=== PATIENT | male | born 1950 | race Caucasian/White ===

== ENCOUNTER 2020-01-10 12:19 | Outpatient (CLI) | payer BC, OTHER ==
--- NOTE | 2020-01-10 20:20 | RAD ---
LEFT FEMUR TWO VIEW: 01/10/20 HISTORY: Leg injury. COMPARISON: None. FINDINGS: No acute left femur fracture. Obturator ring is intact. Moderate narrowing of the medial compartment of the knee. Mild vascular calcifications. 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 No femur fracture. POS: HOME
== END 2020-01-10 12:20 | disposition home or self-care (01) ==
LOC: SCSRAD 12:19
PROVIDERS: ATTEND Family Medicine
DX: S89.92XA Unspecified injury of left lower leg, initial encounter (principal); M17.12 Unilateral primary osteoarthritis, left knee; M16.12 Unilateral primary osteoarthritis, left hip

== ENCOUNTER 2020-08-01 11:51 | Emergency (ER) | payer BC, OTHER ==
[2020-08-01] MEDS ORDERED: cefTRIAXone\\ROCEPHIN 2 GM VIAL ONE (12:24)
[2020-08-01] MEDS ORDERED: Acetaminophen 500 MG TAB ONE (12:26)
[2020-08-01 12:35] LABS: #Lymphocytes 0.8 thou/uL (1.20-3.40); #Monocytes 1.3 thou/uL (0.11-0.59); #Neutrophils 11.5 thou/uL (1.40-6.50); %Basophils 0.2 % (0.0-1.0); %Eosinophils 0.1 % (0.0-10.0); %Lymphocytes 5.7 % (21.0-51.0); %Monocytes 9.6 % (0.0-10.0); %Neutrophils 84.4 % (42.0-75.0); Hemoglobin 17.8 g/dL (14.0-18.0); Mean Corpuscular Hemoglobin 32.5 pg (27.0-31.0); Mean Corpuscular Volume 98.6 fL (78.0-98.0); Mean Platelet Volume 7.3 fL (7.4-10.4); Platelet Count 139 thou/uL (130-400); Red Blood Cell (RBC) Count 5.46 mill/uL (4.70-6.10); White Blood Cell (WBC) Count 13.7 thou/uL (4.8-10.8)
[2020-08-01 12:57] LABS: ALT (SGPT) 26 U/L (8-55); AST (SGOT) 17 U/L (5-34); Albumin 4.7 g/dL (3.4-4.8); Alkaline Phosphatase 71 U/L (40-110); Anion Gap 15 mmol/L (10-20); BUN (Urea Nitrogen) 17 mg/dL (8.4-25.7); Bilirubin, Total 1.5 mg/dL (0.2-1.2); Calc. Creatinine Clearance 0 mL/min (70-130); Calcium 10.1 mg/dL (7.8-10.44); Carbon Dioxide 26 mmol/L (23-31); Chloride 101 mmol/L (98-107); Globulin 3.5 g/dL (2.4-3.5); Glucose 121 mg/dL (80-115); Protein, Total 8.2 g/dL (5.8-8.1); Sodium 138 mmol/L (136-145)
[2020-08-01 13:10] LABS: Bilirubin Small (Negative); Blood, Urine Large (Negative); Glucose, Urine (Dipstick) 250 mg/dL (Negative); Ketone, Urine 15 mg/dL (Negative); Leukocyte Moderate (Negative); Nitrite Positive (Negative); Protein, Urine (Dipstick) 100 mg/dL (Neg-Trace); Specific Gravity, Urine 1.025 (1.005-1.030); pH, Urine 5.5 (5.0-9.0)
[2020-08-01 13:12] LABS: Clarity Cloudy (Clear)
[2020-08-01 13:17] LABS: Bacteria/HPF 3+ HPF (None Seen); RBC/HPF 21-50 HPF (0-3); Squamous Epithelial 0-3 HPF (0-3); WBC/HPF Greater Than 50 HPF (0-3)
== END 2020-08-01 14:36 | disposition home or self-care (01) ==
LOC: ERS 11:51
DX: N39.0 Urinary tract infection, site not specified (principal); D72.829 Elevated white blood cell count, unspecified; E78.5 Hyperlipidemia, unspecified; I10 Essential (primary) hypertension; F17.220 Nicotine dependence, chewing tobacco, uncomplicated; Z79.899 Other long term (current) drug therapy
CPT/HCPCS: 36415; 80053; 81003; 81015; 83605; 85025; 87040; 87077; 87086; 87149; 87186; 93005; 94760; 96365; J0696

== ENCOUNTER 2020-08-02 16:18 | Observation (INO) | payer BC, OTHER ==
[2020-08-02] MEDS ORDERED: Acetaminophen 500 MG TAB ONE ×2 (16:29→16:49)
[2020-08-02] MEDS ORDERED: cefTRIAXone\\ROCEPHIN 1 GM VIAL ONE (16:43)
[2020-08-02 16:57] LABS: #Lymphocytes 0.4 thou/uL (1.20-3.40); #Monocytes 0.5 thou/uL (0.11-0.59); %Eosinophils 0.2 % (0.0-10.0); %Monocytes 5.4 % (0.0-10.0); %Neutrophils 90.4 % (42.0-75.0); Hemoglobin 16.7 g/dL (14.0-18.0); Mean Corpuscular Hemoglobin 33.6 pg (27.0-31.0); Mean Corpuscular Volume 98.6 fL (78.0-98.0); Mean Platelet Volume 7.4 fL (7.4-10.4); Platelet Count 109 thou/uL (130-400); RBC Distribution Width 12.9 % (11.5-14.5); Red Blood Cell (RBC) Count 4.99 mill/uL (4.70-6.10)
[2020-08-02 17:14] LABS: ALT (SGPT) 21 U/L (8-55); AST (SGOT) 19 U/L (5-34); Albumin 4.1 g/dL (3.4-4.8); Alkaline Phosphatase 78 U/L (40-110); Anion Gap 11 mmol/L (10-20); BUN (Urea Nitrogen) 16 mg/dL (8.4-25.7); Bilirubin, Total 1.2 mg/dL (0.2-1.2); Calc. Creatinine Clearance 0 mL/min (70-130); Calcium 9.3 mg/dL (7.8-10.44); Carbon Dioxide 26 mmol/L (23-31); Chloride 104 mmol/L (98-107); Globulin 3.4 g/dL (2.4-3.5); Glucose 103 mg/dL (80-115); Potassium 3.9 mmol/L (3.5-5.1); Protein, Total 7.5 g/dL (5.8-8.1); Sodium 137 mmol/L (136-145)
[2020-08-02 17:15] LABS: Bacteria/HPF None Seen HPF (None Seen); Bilirubin Negative (Negative); Blood, Urine 2+ (Negative); Clarity Clear (Clear); Glucose, Urine (Dipstick) 200 mg/dL (Negative); Ketone, Urine Trace mg/dL (Negative); Leukocyte 75 Leu/uL (Negative); Nitrite Negative (Negative); Protein, Urine (Dipstick) 300 mg/dL (Neg-Trace); Specific Gravity, Urine 1.013 (1.002-1.036); Squamous Epithelial 0-3 HPF (0-3); Urobilinogen Normal mg/dL (Less than 2); WBC/HPF 21-50 HPF (0-3)
[2020-08-02] MEDS ORDERED: Vancomycin 1 GM/200 ML BAG ONE (18:22)
[2020-08-02] MEDS ORDERED: Acetaminophen 325 MG TAB PO PRN ×2 (19:30→20:17)
[2020-08-02] MEDS ORDERED: hydrALAZINE 20 MG/ML VIAL SLOW IVP PRN (20:17)
[2020-08-02] MEDS ORDERED: Atorvastatin Calcium 20 MG TAB PO SCH (21:00)
[2020-08-02] MEDS: Sodium Chloride 0.9% 1,000 ML IV SCH (21:22)
[2020-08-02] MEDS: Tamsulosin HCl 0.4 MG CAP PO SCH (22:31)
[2020-08-03 00:19] LABS: SARS-CoV-2 NAA Rapid Test Not Detected (NotDetected)
[2020-08-03 01:15] VITALS: BMI 30.9
[2020-08-03] MEDS: Sodium Chloride 0.9% 1,000 ML IV SCH ×4 (02:15→23:38)
[2020-08-03] MEDS: Famotidine 20 MG TAB PO SCH ×3 (02:16→21:10)
[2020-08-03 06:22] LABS: Band 8 % (5-11); Hemoglobin 14.9 g/dL (14.0-18.0); Lymphocytes 14 % (21-51); MDiff Complete? YES; Mean Corpuscular HGB CONC 33.3 g/dL (32.0-36.0); Mean Corpuscular Hemoglobin 32.5 pg (27.0-31.0); Mean Corpuscular Volume 97.8 fL (78.0-98.0); Mean Platelet Volume 8.2 fL (7.4-10.4); Monocytes 16 % (0-10); Neutrophil 62 % (42-75); Platelet Count 119 thou/uL (130-400); Platelet Morphology Comment Appears Decreased; RBC Distribution Width 12.9 % (11.5-14.5); Red Blood Cell (RBC) Count 4.59 mill/uL (4.70-6.10); White Blood Cell (WBC) Count 8.5 thou/uL (4.8-10.8)
[2020-08-03] MEDS: Enoxaparin Sodium 40 MG/0.4 ML SYRINGE SC SCH (08:55)
[2020-08-03] MEDS ORDERED: Amlodipine 10 MG TAB PO SCH ×2 (09:00→21:00)
[2020-08-03] MEDS ORDERED: Aspirin 81 mg Enteric Coated Tablet PO SCH ×2 (09:00→21:00)
[2020-08-03] MEDS ORDERED: Ezetimibe 10 MG TAB PO SCH ×2 (09:00→21:00)
[2020-08-03] MEDS ORDERED: Polyethylene Glycol 3350 17 GM Packet PO SCH (18:00)
[2020-08-03 18:09] LABS: Anion Gap 13 mmol/L (10-20); BUN (Urea Nitrogen) 18 mg/dL (8.4-25.7); Calc. Creatinine Clearance 92 mL/min (70-130); Calcium 9.3 mg/dL (7.8-10.44); Carbon Dioxide 23 mmol/L (23-31); Chloride 106 mmol/L (98-107); Glucose 98 mg/dL (80-115); Potassium 3.8 mmol/L (3.5-5.1); Sodium 138 mmol/L (136-145)
[2020-08-03] MEDS: Tamsulosin HCl 0.4 MG CAP PO SCH (21:10)
[2020-08-04 07:48] VITALS: BP 155/76; TEMP 98.2
[2020-08-04] MEDS ORDERED: Polyethylene Glycol 3350 17 GM Packet PO SCH (09:00)
[2020-08-04] MEDS ORDERED: Losartan 25 MG TAB PO SCH (09:00)
[2020-08-04] MEDS: Famotidine 20 MG TAB PO SCH (11:21)
[2020-08-04] MEDS: Enoxaparin Sodium 40 MG/0.4 ML SYRINGE SC SCH (11:21)
== END 2020-08-04 12:00 | disposition home or self-care (01) ==
LOC: ERS 16:18 → SURG A 18:21
PROVIDERS: ADMIT Internal Medicine; ATTEND Internal Medicine
DX: N30.01 Acute cystitis with hematuria (principal); N17.9 Acute kidney failure, unspecified; N20.0 Calculus of kidney; I10 Essential (primary) hypertension; E11.9 Type 2 diabetes mellitus without complications; E78.5 Hyperlipidemia, unspecified; N40.0 Benign prostatic hyperplasia without lower urinary tract symptoms; Z79.82 Long term (current) use of aspirin; Z79.899 Other long term (current) drug therapy; Z88.8 Allergy status to other drugs, medicaments and biological substances
CPT/HCPCS: 36415; 71045; 74176; 80048; 80053; 81003; 81015; 83605; 85007; 85025; 85027; 87040; 87086; 93005; 96365; 96375; G0378; J0696; J1956; J3370; U0002; U0005

== ENCOUNTER 2020-10-10 13:18 | Outpatient (CLI) | payer BC, OTHER ==
[2020-10-10 14:45] LABS: #Eosinphils 0.1 10x3/uL (0.0-0.5); #Monocytes 0.7 10x3/uL (0.0-1.1); %Basophils 0.3 % (0.0-2.0); %Eosinophils 1.3 % (0.0-6.0); %Lymphocytes 20.7 % (18.0-47.0); %Neutrophils 66.5 % (40.0-75.0); Hemoglobin 13.9 g/dL (13.5-17.5); Mean Corpuscular HGB CONC 33.7 g/dL (32.0-36.0); Mean Corpuscular Hemoglobin 32.2 pg (27.0-33.0); Mean Corpuscular Volume 95.4 fl (81.2-95.1); Mean Platelet Volume 9.6 fl (7.4-10.4); Platelet Count 150 10x3/uL (150-450); RBC Distribution Width 13.2 % (11.5-14.5); Red Blood Cell (RBC) Count 4.32 10x6/uL (4.32-5.72)
[2020-10-10 14:50] LABS: Bilirubin Neg (Negative); Blood, Urine 25 (Negative); Clarity Clear (Clear); Glucose, Urine (Dipstick) 250 mg/dL (Negative); Ketone, Urine Negative (Negative); Leukocyte 25 (Negative); Nitrite Negative (Negative); Protein, Urine (Dipstick) Negative (Neg-Trace); Urobilinogen Normal mg/dL (Less than 2)
[2020-10-10 14:59] LABS: Prothrombin Time 10.8 sec (9.5-12.1)
[2020-10-10 15:01] LABS: Bacteria/HPF None Seen HPF (None Seen); RBC/HPF 0-3 HPF (0-3); Squamous Epithelial None Seen HPF (0-3); WBC/HPF 0-3 HPF (0-3)
[2020-10-10 15:01] LABS: Anion Gap 13 mmol/L (10-20); BUN (Urea Nitrogen) 23 mg/dL (8.4-25.7); Calc. Creatinine Clearance 0 mL/min (70-130); Calcium 9.9 mg/dL (7.8-10.44); Carbon Dioxide 29 mmol/L (23-31); Chloride 103 mmol/L (98-107); Glucose 130 mg/dL (80-115); Potassium 4.5 mmol/L (3.5-5.1); Sodium 140 mmol/L (136-145)
[2020-10-11 11:41] LABS: SARS-CoV-2 PCR by NAA Not Detected (NotDetected)
== END 2020-10-10 13:19 | disposition home or self-care (01) ==
LOC: LABBT 13:18
PROVIDERS: ATTEND Orthopaedic Surgery
DX: Z01.818 Encounter for other preprocedural examination (principal); M16.12 Unilateral primary osteoarthritis, left hip; Z20.822 Contact with and (suspected) exposure to COVID-19
CPT/HCPCS: 80048; 81001; 85025; 85610; 87081; 93005; 93010; U0003; U0005

== ENCOUNTER 2020-11-09 14:36 | Inpatient (IN) | payer BC, OTHER, MEDICARE ==
[~2020-11-09 14:36] MED LIST: Iopamidol-370 76% 500 ML 1 ML ONE
[2020-11-09 15:37] LABS: #Lymphocytes 0.7 thou/uL (1.20-3.40); #Monocytes 0.2 thou/uL (0.11-0.59); #Neutrophils 5.3 thou/uL (1.40-6.50); %Basophils 0.3 % (0.0-1.0); %Eosinophils 0.1 % (0.0-10.0); %Lymphocytes 11.4 % (21.0-51.0); %Monocytes 3.1 % (0.0-10.0); Mean Corpuscular HGB CONC 34.4 g/dL (32.0-36.0); Mean Corpuscular Hemoglobin 33.4 pg (27.0-31.0); Platelet Count 188 thou/uL (130-400); RBC Distribution Width 12.7 % (11.5-14.5); White Blood Cell (WBC) Count 6.3 thou/uL (4.8-10.8)
[2020-11-09 16:03] LABS: ALT (SGPT) 69 U/L (8-55); AST (SGOT) 82 U/L (5-34); Albumin 3.4 g/dL (3.4-4.8); Alkaline Phosphatase 111 U/L (40-110); Anion Gap 16 mmol/L (10-20); BUN (Urea Nitrogen) 25 mg/dL (8.4-25.7); Bilirubin, Total 1.1 mg/dL (0.2-1.2); Calc. Creatinine Clearance 0 mL/min (70-130); Calcium 8.8 mg/dL (7.8-10.44); Carbon Dioxide 23 mmol/L (23-31); Chloride 101 mmol/L (98-107); Globulin 3.2 g/dL (2.4-3.5); Glucose 111 mg/dL (80-115); Potassium 4.1 mmol/L (3.5-5.1); Protein, Total 6.6 g/dL (5.8-8.1); Sodium 136 mmol/L (136-145)
[2020-11-09] MEDS ORDERED: Famotidine/PF 20 mg/2ml Vial ONE (17:21)
[2020-11-09] MEDS ORDERED: diphenhydrAMINE 50 MG/ML VIAL ONE (17:21)
[2020-11-09] MEDS ORDERED: HYDROcodone/Acetaminophen 5/325 mg Tablet PO PRN (21:03)
[2020-11-09] MEDS ORDERED: Guaifenesin DM 100-10/5 ML UDCUP PO PRN (21:03)
[2020-11-09] MEDS ORDERED: Ondansetron PF 4 MG/2 ML Vial IVP PRN (21:03)
[2020-11-09] MEDS ORDERED: Acetaminophen 325 MG TAB PO PRN (21:03)
[2020-11-09] MEDS ORDERED: hydrALAZINE 20 MG/ML VIAL SLOW IVP PRN (21:11)
[2020-11-09] MEDS ORDERED: Morphine 2 MG/ML VIAL SLOW IVP PRN (21:11)
[2020-11-09] MEDS ORDERED: HumaLOG 300 UNITS/3 ML VIAL SC PRN (21:30)
[2020-11-09] MEDS ORDERED: Dexamethasone 10 MG in Sodium Chloride 0.9% 50 ML IVPB SCH (21:30)
[2020-11-09] MEDS ORDERED: Dexamethasone 10 MG/ML VIAL SLOW IVP SCH (22:00)
[2020-11-10] MEDS ORDERED: Guaifenesin DM 100-10/5 ML UDCUP PO PRN (00:01)
[2020-11-10 00:05] VITALS: BMI 27.0
[2020-11-10] MEDS: Nicotine 21 MG PATCH TD SCH (00:48)
[2020-11-10 04:55] LABS: Bilirubin, Total 0.9 mg/dL (0.2-1.2); Calcium 8.5 mg/dL (7.8-10.44); Chloride 106 mmol/L (98-107); Potassium 4.6 mmol/L (3.5-5.1); Sodium 137 mmol/L (136-145)
[2020-11-10 04:57] LABS: #Lymphocytes 0.4 thou/uL (1.20-3.40); #Monocytes 0.4 thou/uL (0.11-0.59); #Neutrophils 2.6 thou/uL (1.40-6.50); %Basophils 0.3 % (0.0-1.0); %Eosinophils 0.1 % (0.0-10.0); %Lymphocytes 12.7 % (21.0-51.0); %Monocytes 10.5 % (0.0-10.0); %Neutrophils 76.5 % (42.0-75.0); Hemoglobin 13.8 g/dL (14.0-18.0); Mean Corpuscular HGB CONC 32.8 g/dL (32.0-36.0); Mean Corpuscular Hemoglobin 32.1 pg (27.0-31.0); Mean Corpuscular Volume 97.7 fL (78.0-98.0); Mean Platelet Volume 7.1 fL (7.4-10.4); Platelet Count 227 thou/uL (130-400); RBC Distribution Width 12.9 % (11.5-14.5); Red Blood Cell (RBC) Count 4.32 mill/uL (4.70-6.10); White Blood Cell (WBC) Count 3.4 thou/uL (4.8-10.8)
[2020-11-10 05:06] LABS: ALT (SGPT) 64 U/L (8-55); AST (SGOT) 67 U/L (5-34); Albumin 3.3 g/dL (3.4-4.8); Alkaline Phosphatase 109 U/L (40-110); Anion Gap 18 mmol/L (10-20); BUN (Urea Nitrogen) 25 mg/dL (8.4-25.7); Calc. Creatinine Clearance 104 mL/min (70-130); Carbon Dioxide 17 mmol/L (23-31); Globulin 3.4 g/dL (2.4-3.5); Glucose 157 mg/dL (80-115); Protein, Total 6.7 g/dL (5.8-8.1)
[2020-11-10] MEDS ORDERED: Dexamethasone 1 MG TAB PO SCH (08:00)
[2020-11-10] MEDS: Enoxaparin Sodium 40 MG/0.4 ML SYRINGE SC SCH (09:25)
[2020-11-10] MEDS: Famotidine 20 MG TAB PO SCH ×2 (09:25→20:30)
[2020-11-10] MEDS: Zinc Sulfate 220 MG CAP PO SCH (09:25)
[2020-11-10] MEDS: Aspirin 81 mg Enteric Coated Tablet PO SCH ×2 (09:25→20:26)
[2020-11-10] MEDS: guaiFENesin ER 600 MG TAB PO SCH ×2 (09:26→20:28)
[2020-11-10] MEDS: Dexamethasone 10 MG/ML VIAL SLOW IVP SCH (09:28)
[2020-11-10] MEDS ORDERED: REMDESIVIR 200 MG in Sodium Chloride 0.9% 250 ML 210 ML IV SCH (15:00)
[2020-11-10 19:11] LABS: SARS-CoV-2 PCR by NAA DETECTED (NotDetected)
[2020-11-10] MEDS: Ezetimibe 10 MG TAB PO SCH ×2 (20:26→20:27)
[2020-11-10] MEDS: Atorvastatin Calcium 20 MG TAB PO SCH ×2 (20:26→20:27)
[2020-11-10] MEDS: Amlodipine 10 MG TAB PO SCH (20:28)
[2020-11-10] MEDS: Gabapentin 100 MG CAP PO PRN (20:30)
[2020-11-11] MEDS: Famotidine 20 MG TAB PO SCH ×2 (08:26→20:24)
[2020-11-11] MEDS: Aspirin 81 mg Enteric Coated Tablet PO SCH ×2 (08:26→20:23)
[2020-11-11] MEDS: Enoxaparin Sodium 40 MG/0.4 ML SYRINGE SC SCH (08:26)
[2020-11-11] MEDS: Zinc Sulfate 220 MG CAP PO SCH (08:26)
[2020-11-11] MEDS: guaiFENesin ER 600 MG TAB PO SCH ×3 (08:26→20:53)
[2020-11-11] MEDS: Dexamethasone 10 MG/ML VIAL SLOW IVP SCH (08:27)
[2020-11-11] MEDS: REMDESIVIR 100 MG in Sodium Chloride 0.9% 250 ML 230 ML IV SCH (13:35)
[2020-11-11] MEDS: Gabapentin 100 MG CAP PO PRN (15:11)
[2020-11-11] MEDS: cefTRIAXone\\ROCEPHIN 1 GM in Sodium Chloride 0.9% 100 ML IVPB SCH (15:12)
[2020-11-11] MEDS: Amlodipine 10 MG TAB PO SCH (20:23)
[2020-11-11] MEDS: Atorvastatin Calcium 20 MG TAB PO SCH (20:23)
[2020-11-11] MEDS: Ezetimibe 10 MG TAB PO SCH ×2 (20:24→20:53)
[2020-11-11] MEDS: Nicotine 21 MG PATCH TD SCH ×2 (20:54)
[2020-11-12 05:46] LABS: #Lymphocytes 0.7 thou/uL (1.20-3.40); #Monocytes 0.7 thou/uL (0.11-0.59); #Neutrophils 7.4 thou/uL (1.40-6.50); %Lymphocytes 7.7 % (21.0-51.0); %Monocytes 8.3 % (0.0-10.0); Hemoglobin 13.5 g/dL (14.0-18.0); Mean Corpuscular HGB CONC 33.3 g/dL (32.0-36.0); Mean Corpuscular Hemoglobin 32.3 pg (27.0-31.0); Mean Corpuscular Volume 97.1 fL (78.0-98.0); Mean Platelet Volume 6.9 fL (7.4-10.4); Platelet Count 297 thou/uL (130-400); RBC Distribution Width 12.5 % (11.5-14.5); Red Blood Cell (RBC) Count 4.17 mill/uL (4.70-6.10); White Blood Cell (WBC) Count 8.8 thou/uL (4.8-10.8)
[2020-11-12 06:11] LABS: Anion Gap 12 mmol/L (10-20); BUN (Urea Nitrogen) 37 mg/dL (8.4-25.7); Calc. Creatinine Clearance 89 mL/min (70-130); Calcium 8.7 mg/dL (7.8-10.44); Carbon Dioxide 24 mmol/L (23-31); Chloride 105 mmol/L (98-107); Glucose 155 mg/dL (80-115); Potassium 4.2 mmol/L (3.5-5.1); Sodium 137 mmol/L (136-145)
[2020-11-12] MEDS: Famotidine 20 MG TAB PO SCH ×2 (08:47→20:16)
[2020-11-12] MEDS: Aspirin 81 mg Enteric Coated Tablet PO SCH ×2 (08:47→20:16)
[2020-11-12] MEDS: Zinc Sulfate 220 MG CAP PO SCH (08:47)
[2020-11-12] MEDS: REMDESIVIR 100 MG in Sodium Chloride 0.9% 250 ML 230 ML IV SCH (08:48)
[2020-11-12] MEDS: Dexamethasone 10 MG/ML VIAL SLOW IVP SCH (08:51)
[2020-11-12] MEDS: guaiFENesin ER 600 MG TAB PO SCH ×2 (08:55→20:15)
[2020-11-12] MEDS: Enoxaparin Sodium 40 MG/0.4 ML SYRINGE SC SCH ×2 (10:36→20:17)
[2020-11-12] MEDS: cefTRIAXone\\ROCEPHIN 1 GM in Sodium Chloride 0.9% 100 ML IVPB SCH (14:09)
[2020-11-12] MEDS ORDERED: Piperacillin/Tazobactam 3.375 GM in Sodium Chloride 0.9% 100 ML IVPB SCH ×2 (14:44→15:00)
[2020-11-12] MEDS: Vancomycin 1 GM in Premix Bag 1 BAG IVPB SCH (16:19)
[2020-11-12] MEDS ORDERED: Benzonatate 100 MG CAP PO SCH (18:00)
[2020-11-12] MEDS ORDERED: guaiFENesin 200 MG TAB PO PRN ×2 (18:33→18:51)
[2020-11-12] MEDS: Ezetimibe 10 MG TAB PO SCH (20:16)
[2020-11-12] MEDS: Atorvastatin Calcium 20 MG TAB PO SCH (20:16)
[2020-11-12] MEDS: Amlodipine 10 MG TAB PO SCH (20:16)
[2020-11-12] MEDS: Piperacillin/Tazobactam 3.375 GM in Sodium Chloride 0.9% 100 ML IVPB SCH (20:17)
[2020-11-12] MEDS: Benzonatate 100 MG CAP PO SCH (20:19)
[2020-11-13] MEDS: Nicotine 21 MG PATCH TD SCH ×2 (00:44→21:24)
[2020-11-13] MEDS: Vancomycin 1 GM in Premix Bag 1 BAG IVPB SCH ×2 (02:59→15:38)
[2020-11-13] MEDS: Piperacillin/Tazobactam 3.375 GM in Sodium Chloride 0.9% 100 ML IVPB SCH ×3 (04:15→18:20)
[2020-11-13] MEDS: Benzonatate 100 MG CAP PO SCH ×3 (08:22→21:10)
[2020-11-13] MEDS: Zinc Sulfate 220 MG CAP PO SCH (08:22)
[2020-11-13] MEDS: Famotidine 20 MG TAB PO SCH ×2 (08:23→21:14)
[2020-11-13] MEDS: guaiFENesin ER 600 MG TAB PO SCH (08:23)
[2020-11-13] MEDS: Aspirin 81 mg Enteric Coated Tablet PO SCH ×2 (08:23→21:13)
[2020-11-13] MEDS: Enoxaparin Sodium 40 MG/0.4 ML SYRINGE SC SCH ×2 (08:23→21:16)
[2020-11-13] MEDS: Dexamethasone 10 MG/ML VIAL SLOW IVP SCH (08:23)
[2020-11-13] MEDS: REMDESIVIR 100 MG in Sodium Chloride 0.9% 250 ML 230 ML IV SCH (08:23)
[2020-11-13] MEDS ORDERED: Lorazepam 1 MG TAB PO PRN (16:19)
[2020-11-13] MEDS ORDERED: Guaifenesin DM 100-10/5 ML UDCUP PO PRN (16:21)
[2020-11-13] MEDS: Gabapentin 100 MG CAP PO PRN (17:23)
[2020-11-13] MEDS: Ezetimibe 10 MG TAB PO SCH (21:13)
[2020-11-13] MEDS: Amlodipine 10 MG TAB PO SCH (21:14)
[2020-11-13] MEDS: guaiFENesin/DM ER PO SCH (21:14)
[2020-11-13] MEDS: Atorvastatin Calcium 20 MG TAB PO SCH ×2 (21:17→21:26)
[2020-11-14] MEDS: Vancomycin 1 GM in Premix Bag 1 BAG IVPB SCH (02:45)
[2020-11-14] MEDS: Piperacillin/Tazobactam 3.375 GM in Sodium Chloride 0.9% 100 ML IVPB SCH ×3 (03:56→18:27)
[2020-11-14] MEDS: Famotidine 20 MG TAB PO SCH ×2 (08:11→20:16)
[2020-11-14] MEDS: REMDESIVIR 100 MG in Sodium Chloride 0.9% 250 ML 230 ML IV SCH (08:11)
[2020-11-14] MEDS: Aspirin 81 mg Enteric Coated Tablet PO SCH ×2 (08:11→20:16)
[2020-11-14] MEDS: Zinc Sulfate 220 MG CAP PO SCH (08:11)
[2020-11-14] MEDS: Enoxaparin Sodium 40 MG/0.4 ML SYRINGE SC SCH ×2 (08:11→20:16)
[2020-11-14] MEDS: Dexamethasone 10 MG/ML VIAL SLOW IVP SCH (08:12)
[2020-11-14] MEDS: guaiFENesin/DM ER PO SCH ×3 (08:19→20:26)
[2020-11-14] MEDS: Benzonatate 100 MG CAP PO SCH ×3 (08:19→20:16)
[2020-11-14] MEDS: Amlodipine 10 MG TAB PO SCH (20:15)
[2020-11-14] MEDS: Atorvastatin Calcium 20 MG TAB PO SCH ×2 (20:16→20:27)
[2020-11-14] MEDS: Ezetimibe 10 MG TAB PO SCH (20:16)
[2020-11-14] MEDS: Nicotine 21 MG PATCH TD SCH (20:17)
[2020-11-15] MEDS: Piperacillin/Tazobactam 3.375 GM in Sodium Chloride 0.9% 100 ML IVPB SCH ×3 (02:39→19:16)
[2020-11-15 05:03] LABS: Hemoglobin 14.5 g/dL (14.0-18.0); Mean Corpuscular Hemoglobin 31.9 pg (27.0-31.0); Mean Corpuscular Volume 96.8 fL (78.0-98.0); Mean Platelet Volume 7.2 fL (7.4-10.4); Platelet Count 381 thou/uL (130-400); RBC Distribution Width 12.5 % (11.5-14.5); Red Blood Cell (RBC) Count 4.53 mill/uL (4.70-6.10)
[2020-11-15 05:20] LABS: ALT (SGPT) 104 U/L (8-55); AST (SGOT) 32 U/L (5-34); Albumin 3.1 g/dL (3.4-4.8); Alkaline Phosphatase 102 U/L (40-110); Anion Gap 15 mmol/L (10-20); BUN (Urea Nitrogen) 26 mg/dL (8.4-25.7); Bilirubin, Total 0.9 mg/dL (0.2-1.2); CRP (Inflammatory) 1.69 mg/dL (= or < 0.5); Calc. Creatinine Clearance 101 mL/min (70-130); Calcium 8.9 mg/dL (7.8-10.44); Carbon Dioxide 21 mmol/L (23-31); Chloride 108 mmol/L (98-107); Globulin 2.9 g/dL (2.4-3.5); Glucose 101 mg/dL (80-115); Potassium 4.6 mmol/L (3.5-5.1); Sodium 139 mmol/L (136-145)
[2020-11-15] MEDS: Benzonatate 100 MG CAP PO SCH ×3 (08:03→19:52)
[2020-11-15] MEDS: Dexamethasone 10 MG/ML VIAL SLOW IVP SCH (08:03)
[2020-11-15] MEDS: Enoxaparin Sodium 40 MG/0.4 ML SYRINGE SC SCH ×2 (08:03→19:52)
[2020-11-15] MEDS: Aspirin 81 mg Enteric Coated Tablet PO SCH ×2 (08:03→19:54)
[2020-11-15] MEDS: Famotidine 20 MG TAB PO SCH ×2 (08:04→19:52)
[2020-11-15] MEDS: guaiFENesin/DM ER PO SCH ×2 (08:05→19:53)
[2020-11-15] MEDS: Zinc Sulfate 220 MG CAP PO SCH (08:05)
[2020-11-15] MEDS: Atorvastatin Calcium 20 MG TAB PO SCH (19:52)
[2020-11-15] MEDS: Ezetimibe 10 MG TAB PO SCH (19:52)
[2020-11-15] MEDS: Amlodipine 10 MG TAB PO SCH (19:52)
[2020-11-15] MEDS: Nicotine 21 MG PATCH TD SCH (19:53)
[2020-11-16] MEDS: Piperacillin/Tazobactam 3.375 GM in Sodium Chloride 0.9% 100 ML IVPB SCH ×2 (02:53→11:19)
[2020-11-16] MEDS: Benzonatate 100 MG CAP PO SCH ×2 (08:32→14:00)
[2020-11-16] MEDS: Famotidine 20 MG TAB PO SCH (08:32)
[2020-11-16] MEDS: Zinc Sulfate 220 MG CAP PO SCH (08:32)
[2020-11-16] MEDS: Enoxaparin Sodium 40 MG/0.4 ML SYRINGE SC SCH (08:33)
[2020-11-16] MEDS: Aspirin 81 mg Enteric Coated Tablet PO SCH (08:33)
[2020-11-16] MEDS: guaiFENesin/DM ER PO SCH (08:33)
[2020-11-16] MEDS: Dexamethasone 10 MG/ML VIAL SLOW IVP SCH (08:34)
[2020-11-16 08:46] VITALS: TEMP 97.7
[2020-11-16 17:00] VITALS: BP 108/63
== END 2020-11-16 17:00 | disposition home or self-care (01) | DRG 177 ==
LOC: ERS 14:36 → 2SW 23:46 → OBSVTOIN 11-10 16:41
PROVIDERS: ADMIT Internal Medicine; ATTEND Internal Medicine
PROC: 3E0333Z Introduction of Anti-inflammatory into Peripheral Vein, Percutaneous Approach (ICD-10-PCS; 2020-11-09)
PROC: 8E0ZXY6 Isolation (ICD-10-PCS; 2020-11-09)
PROC: XW033E5 Introduction of Remdesivir Anti-infective into Peripheral Vein, Percutaneous Approach, New Technology Group 5 (ICD-10-PCS; principal; 2020-11-10)
DX: U07.1 COVID-19 (principal); J12.82 Pneumonia due to coronavirus disease 2019; J96.01 Acute respiratory failure with hypoxia; F17.210 Nicotine dependence, cigarettes, uncomplicated; E78.5 Hyperlipidemia, unspecified; M19.90 Unspecified osteoarthritis, unspecified site; D64.9 Anemia, unspecified; R74.01 Elevation of levels of liver transaminase levels; N40.0 Benign prostatic hyperplasia without lower urinary tract symptoms; Z96.642 Presence of left artificial hip joint; F41.9 Anxiety disorder, unspecified; R42 Dizziness and giddiness; R06.6 Hiccough; Z81.2 Family history of tobacco abuse and dependence; Z83.6 Family history of other diseases of the respiratory system; Z91.041 Radiographic dye allergy status; Z98.890 Other specified postprocedural states; Z79.899 Other long term (current) drug therapy; Z79.82 Long term (current) use of aspirin
CPT/HCPCS: 36415; 36416; 71045; 71275; 80048; 80053; 83880; 84484; 85025; 85027; 85379; 86140; 93005; 96372; 96374; 96375; 96376; G0378; J0696; J1100; J1200; J1650; J2543; J3370; J3490; J7050; Q9967; S0028; U0003; U0005

== ENCOUNTER 2021-01-31 11:07 | Outpatient (CLI) | payer BC, OTHER ==
[2021-01-31 12:23] LABS: Bilirubin Neg (Negative); Blood, Urine 50 (Negative); Clarity Clear (Clear); Glucose, Urine (Dipstick) Normal (Negative); Ketone, Urine Negative (Negative); Leukocyte 25 (Negative); Nitrite Negative (Negative); Protein, Urine (Dipstick) Negative (Neg-Trace); Urobilinogen Normal mg/dL (Less than 2)
[2021-01-31 12:24] LABS: Hemoglobin 14.2 g/dL (13.5-17.5); Mean Corpuscular HGB CONC 32.7 g/dL (32.0-36.0); Mean Corpuscular Hemoglobin 32.1 pg (27.0-33.0); Mean Corpuscular Volume 98.2 fl (81.2-95.1); Platelet Count 165 10x3/uL (150-450); RBC Distribution Width 13.3 % (11.5-14.5); Red Blood Cell (RBC) Count 4.42 10x6/uL (4.32-5.72); White Blood Cell (WBC) Count 8.5 10x3/uL (3.5-10.5)
[2021-01-31 12:53] LABS: Bacteria/HPF None Seen HPF (None Seen); Mucous/LPF 1+ LPF (<2+); Squamous Epithelial 0-3 HPF (0-3)
[2021-01-31 13:01] LABS: Anion Gap 14 mmol/L (10-20); BUN (Urea Nitrogen) 16 mg/dL (8.4-25.7); Calc. Creatinine Clearance 0 mL/min (70-130); Carbon Dioxide 28 mmol/L (23-31); Chloride 105 mmol/L (98-107); Glucose 97 mg/dL (80-115); Potassium 5.2 mmol/L (3.5-5.1); Sodium 142 mmol/L (136-145)
[2021-02-01 10:15] LABS: % Free PSA 26.7 % (.); Total PSA 0.3 ng/mL (0.0-4.0)
== END 2021-01-31 11:08 | disposition home or self-care (01) ==
LOC: LABBT 11:07
PROVIDERS: ATTEND Urology
DX: Z01.818 Encounter for other preprocedural examination (principal); N52.01 Erectile dysfunction due to arterial insufficiency; N52.9 Male erectile dysfunction, unspecified; Z20.822 Contact with and (suspected) exposure to COVID-19
CPT/HCPCS: 80048; 81001; 84153; 84154; 85027; 87086; 93005; 93010

== ENCOUNTER 2021-02-05 05:56 | Day surgery (SDC) | payer BC, OTHER ==
[2021-02-05] MEDS ORDERED: Fentanyl 100 MCG/2 ML VIAL ONE (07:05)
[2021-02-05] MEDS ORDERED: Levofloxacin 500 mg/D5W 100 ml Premix Bag ONE (07:12)
[2021-02-05] MEDS ORDERED: Lidocaine 1% PF 5 ML VIAL ONE (07:30)
[2021-02-05] MEDS ORDERED: Dexamethasone 20 MG/5 ML VIAL ONE (07:30)
[2021-02-05] MEDS ORDERED: Ondansetron PF 4 MG/2 ML Vial ONE (07:30)
[2021-02-05] MEDS ORDERED: PROPOFOL 200 MG/20 ML VIAL ONE (07:30)
[2021-02-05] MEDS ORDERED: ePHEDrine 50 MG/ML VIAL ONE (07:30)
[2021-02-05] MEDS ORDERED: Oxybutynin 5 MG TAB ONE (08:45)
[2021-02-05] MEDS ORDERED: Phenazopyridine HCl 100 MG TAB ONE (08:45)
[2021-02-05] MEDS ORDERED: Ketorolac Tromethamine 30 MG/ML VIAL ONE (08:45)
== END 2021-02-05 10:04 | disposition home or self-care (01) ==
LOC: SDC 05:56
PROVIDERS: ATTEND Urology
PROC: 0VT08ZZ Resection of Prostate, Via Natural or Artificial Opening Endoscopic (ICD-10-PCS; principal; 2021-02-05)
DX: N40.1 Benign prostatic hyperplasia with lower urinary tract symptoms (principal); N13.8 Other obstructive and reflux uropathy; N21.0 Calculus in bladder; N32.89 Other specified disorders of bladder; N52.01 Erectile dysfunction due to arterial insufficiency; R39.16 Straining to void; R39.15 Urgency of urination; R39.12 Poor urinary stream; R35.0 Frequency of micturition; R35.1 Nocturia; E78.5 Hyperlipidemia, unspecified; I10 Essential (primary) hypertension; Z86.16 Personal history of COVID-19; Z79.82 Long term (current) use of aspirin; Z79.899 Other long term (current) drug therapy; Z91.041 Radiographic dye allergy status
CPT/HCPCS: 88305; J1885; J1956; J3010